=== PATIENT | male | born 1945 | race Caucasian/White ===

== ENCOUNTER → 2018-04-12 | Outpatient (CLI) | payer MEDICARE, OTHER ==
[~2018-04-12] MED LIST: ABILIFY5 MG PO; AMBIEN 10MG10 MG PO; BIOTIN1000 MCG PO; CARAFATE 1GM1 G PO; CEFTIN500 MG PO; CELLCEPT 5500 MG/TAB PO; CITRUCEL FIBER; CITRUCEL PO; CITRUCEL WITH500 MG PO; CLEOCIN HCL300 MG PO; CLINDAMYCIN HC150 MG PO; DIOVAN 160MG160 MG PO; DIOVAN320 MG PO; DIOVAN40 MG PO; DOXYCYCLINE 10100 MG PO; FENTANYL 50MCG TD; FENTANYL PATCH TD; LAMICTAL150 MG PO; LAMOTRIGINE PO; LAMOTRIGINE150 MG PO; LEVOTHYROXIN0.075 MG PO; LEXAPRO 10MG10 MG PO; LEXAPRO20 MG PO; MIRTAZAPINE7.5 MG PO; NATURE'S BLE1000 MCG PO; NEXIUM 40MG40 MG PO; NORCO 325 MG-7.1 TAB PO; NORVASC PO; NUVIGIL50 MG PO; OMEGA 3 FATTY ACID PO; OMEGA 3 PO; OMEGA-31000 MG PO; OXYCODONE HCL40 MG PO; OXYCONTIN 20MG20 MG PO; OXYCONTIN20 MG PO; PREVACID 30MG30 M1 PO; PREVACID 30MG30 MG PO; PROGRAF 1MG1 MG PO; PROGRAF PO; PROVIGIL PO; REMERON 15M15 MG/TAB PO; ROXICODONE 55 MG/TAB PO; SYNTHROID0.075 MG/T PO; ULTRAM 50MG TAB50 MG PO; UROXATRAL10 M1 PO; VITAMIN D1000 IU PO; VITAMIN D2000 I1 PO; VITAMIN D32000 IU PO; WELLBUTRIN XL150 MG PO; ZOFRAN 4MG T4 MG/TAB PO
== END ==
LOC: BHSO 10:19
DX: F31.81 Bipolar II disorder (principal)
CPT/HCPCS: G0463

== ENCOUNTER → 2019-06-19 | Outpatient (CLI) | payer MEDICARE, OTHER | LOC: BHSO 08:44 | DX: F31.81 Bipolar II disorder (principal) | CPT/HCPCS: G0463 ==

== ENCOUNTER → 2022-04-15 | Outpatient (CLI) | payer MEDICARE, OTHER | LOC: ZCOL.LAB 13:57 | DX: R10.9 Unspecified abdominal pain (principal) ==

== ENCOUNTER 2022-05-09 13:00 | Outpatient (RCR) | payer MEDICARE, OTHER ==
[2009-05-08 07:47] VITALS: BP 102/74
[2022-04-28 11:26] VITALS: BP 130/83; PULSE 74; TEMP 98.3
[2022-05-04 11:38] VITALS: BP 126/78; PULSE 83; TEMP 99.1
[2022-05-06 14:14] VITALS: BP 117/68; PULSE 84; TEMP 98.2
--- NOTE | 2022-05-06 14:40 | NUR ---
PT TOLERATED IRON INFUSION WITHOUT COMPLICATION, NEXT APPT 05/09/22.
[~2022-05-09] VITALS: Ht 152.4 cm; Wt 57.3 kg
[2022-05-09 12:55] VITALS: BP 112/68; PULSE 82; TEMP 97.6
[~2022-05-09 13:00] MED LIST changes: +ANUSOL-HC SUPPO25 MG RC; +COZAAR 50MG50 MG/TAB PO; +MASON NATURAL2000 IU PO; -VITAMIN D32000 IU PO; +ZOFRAN ODT4 MG PO
== END 2022-05-09 13:20 | disposition home or self-care (01) ==
LOC: EUO 13:00
DX: N18.9 Chronic kidney disease, unspecified (principal); D63.1 Anemia in chronic kidney disease
CPT/HCPCS: J1756

== ENCOUNTER 2022-06-01 09:36 | Inpatient (IN) | payer MEDICARE, OTHER ==
[2022-06-01] VITALS (9 sets, daily range): BP systolic 116–153; BP diastolic 72–89; PULSE 61–80; TEMP 97.9–98.6
[~2022-06-01] VITALS: Ht 152.4 cm; Wt 49.8 kg
[2022-06-01] MEDS ORDERED: PROGRAF 1MG1 MG PO ×2 (10:01→16:05)
[2022-06-01] MEDS ORDERED: SYNTHROID0.088 MG/T PO (10:01)
[2022-06-01] MEDS ORDERED: PROFERRIN ES12 MG PO (10:02)
[2022-06-01] MEDS ORDERED: FOLIC ACID0.4 MG PO (10:02)
[2022-06-01] MEDS ORDERED: DOXYCYCLINE 10100 MG PO (10:03)
[2022-06-01] MEDS ORDERED: VITAMIN C500 MG PO (10:03)
[2022-06-01] MEDS ORDERED: CLINDAMYCIN PO (10:04)
--- NOTE | 2022-06-01 11:43 | NUR ---
1110 - PT arrives and ambulated 2:1 from cart to chair; monitors and warm blankets applied. PT denies nasuea and pain; no vomiting. VSS. Verbal room report obtained: active NPO status; PT verbalized understanding and is awaiting DR to speak with PT. PT oriented to room and call altman, within reach. Gait mildly unsteady. PT requested his phone from his bag to call family, RN provided. 1125 - VSS. Call altman remains within reach. PT is taking on the phone 1140 - VSS. Call altman remains within reach. PT continues to deny pain and nausea.
--- NOTE | 2022-06-01 11:48 | NUR ---
1145 - PT assisted with repositioning in chair; additional warm blanket provided. Call altman remains within reach.
--- NOTE | 2022-06-01 12:06 | NUR ---
1155 - VSS. Blood draw obtained from butterfly in L AC. Sent to lab via tech. Call altman remains within reach. PT continues to rest w/ lights off.
--- NOTE | 2022-06-01 12:45 | NUR ---
1225 - VSS. PT is resting in the chair. Call altman remains within reach.
--- NOTE | 2022-06-01 13:11 | NUR ---
1255 - PT resting w/ call altman within reach. VSS.
--- NOTE | 2022-06-01 14:04 | NUR ---
Verbal report given to Antonella BOUDREAUX
--- NOTE | 2022-06-01 14:40 | NUR ---
PT RESTING IN CHAIR WITH FEET ELEVATED. PT DENIES NEEDS AT THIS TIME. VSS. PT MAINTAINING SPO2 WELL ON RM AIR. CALL RECEIVED BY HOUSE SUP TO TRANSFER TO INPATIENT RM [phone].
--- NOTE | 2022-06-01 15:06 | NUR ---
1454- PT RESTING IN BED. CALL LIGHT IN REACH. PT DENIES NEEDS AT THIS TIME. REPORT AND CARE OF PT GIVEN TO KANIKA REYES PRIMARY NURSE.
[2022-06-01 15:55] LABS: BASO % 0.5 % (0.0-2.0); EOS # 0.1 K/mm3 (0.0-0.7); EOS % 1.9 % (0.0-4.0); GRAN # 4.2 K/mm3 (1.4-6.5); GRAN % 73.5 % (42.2-75.2); LYMPH # 0.7 K/mm3 (1.2-3.4); LYMPH % 12.5 % (20.0-51.0); MEAN CELL VOLUME 84 fl (80.0-100.0); MEAN CORPUSCULAR HGB CONC 31 g/dl (33.0-37.0); MEAN PLATELET VOLUME 10.2 fl (7.4-10.4); MONO # 0.7 K/mm3 (0.1-0.6); MONO % 11.3 % (1.7-9.3); PLATELET COUNT 263 K/mm3 (130-400); RED BLOOD COUNT 3.68 M/mm3 (4.20-5.60); REDCELL DISTRIBUTION WIDTH-CV 15.2 % (11.5-14.5)
[2022-06-01 16:03] LABS: HEMOGLOBIN 9.5 g/dl (13.5-18.0); MEAN CORPUSCULAR HEMOGLOBIN 26 pg (27-31)
[2022-06-01 16:09] LABS: INR 1.4 (0.8-3.0); PROTHROMBIN TIME 15.9 SECONDS (9.7-12.8)
[2022-06-01 16:17] LABS: CALCIUM 9.1 mg/dL (8.4-10.2); CREATININE, serum 1.27 mg/dL (0.72-1.25); MAGNESIUM 1.6 mg/dL (1.6-2.6); POTASSIUM 5.2 mmol/L (3.5-4.5)
--- NOTE | 2022-06-01 17:18 | NUR ---
PT ADMITTED TO UNIT. ADMISSION INTAKE AND ASSESSMENT COMPLETED. PT ORIENTED TO ROOM. MED REC UPDATED. WILL CONTINUE TO MONITOR.
--- NOTE | 2022-06-01 20:00 | NUR ---
Pt had IV placed into the LAC during dayshift. Pt reports that he has a fistula in the L. arm from a hx of dialysis d/t kidney transplant in 2004. I went in to begin a new IV on the opposite arm and the pt informed me that the fistula on the left arm was closed off "years ago" and that "Dr. Hopper told me that we can use this arm". Assessed fistula for bruit and thrill. No bruit heard and no thrill palpated. IV remains in LAC. No changes at this time, will continue to monitor.
[2022-06-02] VITALS (11 sets, daily range): BP systolic 130–162; BP diastolic 75–94; PULSE 66–91; TEMP 97.6–99
--- NOTE | 2022-06-02 | NUR ---
Pt alert and oriented. Resting in chair. Follows commands. Reports abdomninal pain and requested pain medication. Prn pain medication administered per orders. Pt reports relief. Pt denies nausea/vomiting/bloody stools. Abdomen soft and non-distended. Lung sounds clear but diminished. NPO maintained. Pt independent in room. Shift assessment performed. Medications administered per orders and education provided. VS stable. Pt afebrile. BP stable. Satting WNL on room air. HR NSR. No significant skin issues noted. Pt has closed off AV fistula in left arm. No bruit auscultated and no thrill palpated. Pt does not report any questions at this time, will continue to monitor.
--- NOTE | 2022-06-02 05:48 | NUR ---
No adverse events overnight. Pt alert and oriented, resting in bed. Pt denies nausea/vomiting/chest pain/SOB. Pt did not report any stools overnight. Still denies having bloody stools. Prn oxycontin administered x1 overnight for abdominal pain. Pt remains NPO. Abdomen is rounded and soft. Pt does not report any questions at this time, will continue to monitor.
--- NOTE | 2022-06-02 09:26 | NUR ---
PT RESTING IN BED. MORNING MEDICATIONS HELD DUE TO PT BEING NPO. SHIFT ASSESSMENT COMPLETED. PT DENIES ANY NEEDS AT THIS TIME. CONTINUING TO MONITOR.
--- NOTE | 2022-06-02 09:33 | NUR ---
MAX met with the patient to discuss discharge plan. The patient lives alone in [place]. He reports independence with ADLs and does not have any DME. The patient's PCP is Dr. Edie Antonio and he receives his medications from [facility]. The patient's DPOA-HC is in EMR and it designates his son, Don (ph#[phone]). Don lives in [place]. The patient plans to return home upon discharge. He informed MAX that he had some problems with one of his nurses and wanted to talk to someone about them. MAX notified floor manager, Meghan. MAX asked the PA for PT/OT to be ordered. *Discharge plan: home. Will await PT/OT evals*
--- NOTE | 2022-06-02 09:54 | NUR ---
Initial visit; Sanat thanked Medical Secretary for looking in on him and offering God's blessings.
--- NOTE | 2022-06-02 11:12 | NUR ---
PT IS REQUESTING A DIFFERENT NURSE TO TAKE OVER HIS CARE AT THIS TIME. REPORT GIVEN TO KANIKA JAFFE.
--- NOTE | 2022-06-02 11:45 | NUR ---
PT c/o pain to abdomen-rating pain 7/10 on pain scale-described as throbbing. New orders received brom JORGE Del Castillo for x1 dose IV fentanyl due to NPO status.
--- NOTE | 2022-06-02 11:50 | NUR ---
Report received, assumed care at this time. Assessment complete. VS stable. A&Ox4. Denies nausea/shortness of breath. Rating pain 8/10 on pain scale-fentanyl given per dr coronado. Consent signed for procedure today and on front of chart. IV fluids initiating. Plan of care discussed for the rest of shift-denies questions/concerns. Call light in reach. Will monitor.
--- NOTE | 2022-06-02 14:00 | NUR ---
Patient returned via bed from recovery at this time. Post EGD vitals initiated. A&Ox4. Denies pain/nausea/shortness of breath. Denies current needs. Call light in reach. Will monitor.
[2022-06-03 00:46] VITALS: BP 148/89; PULSE 78; TEMP 97.9
--- NOTE | 2022-06-03 04:11 | NUR ---
Pt alert and oriented, resting queitly, follows commands. Pt did report upper left abdominal pain this morning. Prn pain medication administered per orders with reported relief. No stools overnight. Pt denies bloody stools. Denies chest pain/SOB. IV fluids continuing. Shift assessment performed. Medications administered per orders and education provided. VS stable. Afebrile. On room air satting WNL. Pt tolerating PO diet and medications. Pt has 2100 prograf ordered for this evening. I went to administer the medication to the pt and he stated to me that it was already given to him at 1540 with his cellcept and that "the nurse forgot to scan it because there was something wrong when she got the medication out". Pt also stated that he did not get his morning dose of prograf because he was NPO for a procedure and got his dose at 1540 and "did not want to take 2 doses so close in range". I educated pt and he still refused the 2100 prograf. Pt does not report any questions at this time, will continue to monitor.
--- NOTE | 2022-06-03 06:21 | NUR ---
No adverse events overnight. Pt resting. Alert and oriented, follows commands. Prn pain medication administered x1 overnight for left upper abdominal pain. No stools overnight. Pt denies bloody stools. Adequate urine output. Pt ambulates steady. IV fluids continued overnight. VS stable. On room air. Pt does not report any questions at this time, will continue to monitor.
[2022-06-03 06:57] LABS: BASO % 0.5 % (0.0-2.0); EOS # 0.1 K/mm3 (0.0-0.7); EOS % 1.4 % (0.0-4.0); GRAN # 4.9 K/mm3 (1.4-6.5); GRAN % 78.2 % (42.2-75.2); HEMOGLOBIN 10.4 g/dl (13.5-18.0); LYMPH # 0.6 K/mm3 (1.2-3.4); LYMPH % 10.1 % (20.0-51.0); MEAN CELL VOLUME 85 fl (80.0-100.0); MEAN CORPUSCULAR HEMOGLOBIN 26 pg (27-31); MEAN CORPUSCULAR HGB CONC 31 g/dl (33.0-37.0); MEAN PLATELET VOLUME 10.5 fl (7.4-10.4); MONO # 0.6 K/mm3 (0.1-0.6); MONO % 9.3 % (1.7-9.3); PLATELET COUNT 281 K/mm3 (130-400)
[2022-06-03 07:06] LABS: HEMATOCRIT 34.1 % (42.0-52.0)
[2022-06-03 07:09] LABS: CALCIUM 8.9 mg/dL (8.4-10.2); CREATININE, serum 1.16 mg/dL (0.72-1.25); POTASSIUM 4.5 mmol/L (3.5-4.5)
[2022-06-03 07:48] VITALS: BP 121/74; PULSE 112; TEMP 97.8
--- NOTE | 2022-06-03 08:58 | NUR ---
Patient c/o nausea after eating clear liquid breakfast. Zofran given per dr order.
[2022-06-03 12:02] VITALS: BP 115/82; PULSE 94; TEMP 98.2
[2022-06-03] MEDS ORDERED: PROTONIX 40MG T40 MG PO (14:58)
[2022-06-03] MEDS ORDERED: ZOFRAN ODT4 MG PO (14:59)
[2022-06-03] MEDS ORDERED: ROXICODONE 55 MG/TAB PO (15:02)
--- NOTE | 2022-06-03 15:20 | NUR ---
Discharge instructions given both verbal and handwritten. Discussed f/u appt, home medications, s/s of infection and when to return to hospital. Verbalizes understanding. INT DCd to left AC cath intact. Ambulated off hale per request with SHERYL Quintana escorted patient.
== END 2022-06-03 16:00 | disposition home or self-care (01) | DRG 393 ==
LOC: SDCO 09:36 → MEDICAL 15:03
PROVIDERS: Internal Medicine Gastroenterology; Physician Assistant; ADMIT Internal Medicine
PROC: 0DB68ZX Excision of Stomach, Via Natural or Artificial Opening Endoscopic, Diagnostic (ICD-10-PCS; 2022-06-01)
PROC: 0DC98ZZ Extirpation of Matter from Duodenum, Via Natural or Artificial Opening Endoscopic (ICD-10-PCS; principal; 2022-06-02 12:30)
DX: T18.3XXA Foreign body in small intestine, initial encounter (principal); E43 Unspecified severe protein-calorie malnutrition; Z94.0 Kidney transplant status; Q61.3 Polycystic kidney, unspecified; I31.3 Pericardial effusion (noninflammatory); X58.XXXA Exposure to other specified factors, initial encounter; Z79.899 Other long term (current) drug therapy; D64.9 Anemia, unspecified; E87.5 Hyperkalemia; I10 Essential (primary) hypertension; E03.9 Hypothyroidism, unspecified; G89.29 Other chronic pain; M54.9 Dorsalgia, unspecified; Z96.641 Presence of right artificial hip joint; Z96.652 Presence of left artificial knee joint; Z79.891 Long term (current) use of opiate analgesic
CPT/HCPCS: C9113; G0378; J2405; J2704; J3010; J7030; J7507; J7517

== ENCOUNTER 2022-06-28 16:15 | Day surgery (SDC) | payer MEDICARE, OTHER ==
[~2022-06-28] VITALS: Ht 152.4 cm; Wt 48.2 kg
[~2022-06-28 16:15] MED LIST changes: +CLINDAMYCIN PO; +FOLIC ACID0.4 MG PO; +PROFERRIN ES12 MG PO; +PROTONIX 40MG T40 MG PO; +SYNTHROID0.088 MG/T PO; +VITAMIN C500 MG PO
--- NOTE | 2022-06-28 17:35 | NUR ---
PATIENT ADMITED INTO ROOM 344 FOR BOWL PREP. NOTIFIED FOR ORDERS.
[2022-06-28] MEDS ORDERED: MAG-OX 400400 MG/TAB PO (17:53)
--- NOTE | 2022-06-28 17:57 | NUR ---
PAGED ANESTHESIA PER ORDERS
[2022-06-28] MEDS ORDERED: QUALITY CHOICE PO (18:03)
--- NOTE | 2022-06-28 18:10 | NUR ---
PATIENT STARTING ON BOWL PREP, HE REQUESTING NAUSEA MEDS BEFORE STARTING, GIVEN BY RN.
[2022-06-28 18:20] VITALS: BP 131/86; PULSE 73; TEMP 98
[2022-06-28] MEDS ORDERED: OXYCONTIN 10MG10 MG PO (19:32)
[2022-06-28 20:16] VITALS: BP 138/92; PULSE 87; TEMP 97.5
[2022-06-29 00:03] VITALS: BP 143/85; PULSE 85; TEMP 97.7
--- NOTE | 2022-06-29 00:05 | NUR ---
PATIENT ALERT AND ORIENTED ON ROOM ENTRY. C/O MODERATE PAIN TO BACK AND ABD. CALL TO DR. HAMMOND AND ORDER FOR HOME OXYCONTIN TO BE CONTINUED. PATIENT WORKING ON BOWEL PREP, BOWELS HAVE BARELY STARTED MOVING PER PATIENT. PATIENT STATED HE WOULD LIKE NAUSEA MEDICATIONS INCASE HE GETS NAUSEATED AND HIS HOME MEDICATIONS CONTINUED. CALL PLACED TO DR. DAS AND ORDER TO RESTART CELLCEPT AND PROGRAF, AND MAKE PATIENT NPO+BOWEL PREP, AND FOR ZOFRAN.
[2022-06-29 04:06] VITALS: BP 138/82; PULSE 77; TEMP 98.2
[2022-06-29 08:09] VITALS: BP 147/78; PULSE 74; TEMP 98.1
[2022-06-29 08:15] LABS: MEAN CELL VOLUME 85 fl (80.0-100.0); MEAN CORPUSCULAR HGB CONC 30 g/dl (33.0-37.0); MEAN PLATELET VOLUME 10.7 fl (7.4-10.4); PLATELET COUNT 260 K/mm3 (130-400); RED BLOOD COUNT 3.68 M/mm3 (4.20-5.60); REDCELL DISTRIBUTION WIDTH-CV 15.1 % (11.5-14.5)
[2022-06-29 08:17] LABS: HEMATOCRIT 31.4 % (42.0-52.0); HEMOGLOBIN 9.5 g/dl (13.5-18.0); MEAN CORPUSCULAR HEMOGLOBIN 26 pg (27-31)
[2022-06-29 08:37] LABS: CALCIUM 9.3 mg/dL (8.4-10.2); CREATININE, serum 1.3 mg/dL (0.72-1.25); POTASSIUM 4.7 mmol/L (3.5-4.5)
--- NOTE | 2022-06-29 09:03 | NUR ---
SW met with the patient to discuss discharge plan. The patient lives alone in [place]. He reports independence with ADLs and does not have any DME. The patient's PCP is Dr. Edie Antonio and she receives her medications from [facility]. The patient's DPOA-HC is in EMR and it designates his brother, Don "Roxanne Potter (ph#[phone]). Cuca lives in [place]. The patient plans to return home upon discharge. He states that Cuca drove up here to be around when he discharges and will transport him home when ready. No additional needs at this time. *Discharge plan: home*
[2022-06-29 11:46] VITALS: BP 151/82; PULSE 80; TEMP 97.8
[2022-06-29 14:07] VITALS: BP 98/66; PULSE 75
--- NOTE | 2022-06-29 15:53 | NUR ---
1600 - DISCHARGE PACKET AND PATIENT EDUCATION PROVIDED. ALL QUESTIONS ANSWERED. IV REMOVED PER PROTOCOL. PATIENT SAFELY TRANSPORTED TO ED ENTRANCE VIA STAFF AND FAMILY FOR DISCHARGE.
== END 2022-06-29 16:05 | disposition home or self-care (01) ==
LOC: SDCO 16:15 → SURG 16:19 → SDCO 06-29 16:05
PROVIDERS: Internal Medicine Gastroenterology
DX: D50.9 Iron deficiency anemia, unspecified (principal); R53.0 Neoplastic (malignant) related fatigue; K59.00 Constipation, unspecified; K64.1 Second degree hemorrhoids; Z79.899 Other long term (current) drug therapy
CPT/HCPCS: OP; J2405; J2704; J7507; J7517

== ENCOUNTER 2022-08-02 11:55 | Inpatient (IN) | payer MEDICARE, OTHER ==
[~2022-08-02] VITALS: Ht 152.4 cm; Wt 57.6 kg
[~2022-08-02 11:55] MED LIST changes: +MAG-OX 400400 MG/TAB PO; +OXYCONTIN 10MG10 MG PO; +QUALITY CHOICE PO
[2022-08-02 12:45] LABS: BASO % 0.2 % (0.0-2.0); EOS % 0.1 % (0.0-4.0); GRAN # 13.4 K/mm3 (1.4-6.5); GRAN % 87.5 % (42.2-75.2); HEMATOCRIT 36.4 % (42.0-52.0); HEMOGLOBIN 11.7 g/dl (13.5-18.0); LYMPH # 0.4 K/mm3 (1.2-3.4); LYMPH % 2.7 % (20.0-51.0); MEAN CELL VOLUME 84 fl (80.0-100.0); MEAN CORPUSCULAR HEMOGLOBIN 27 pg (27-31); MEAN CORPUSCULAR HGB CONC 32 g/dl (33.0-37.0); MEAN PLATELET VOLUME 9.9 fl (7.4-10.4); MONO # 1.4 K/mm3 (0.1-0.6); PLATELET COUNT 346 K/mm3 (130-400); RED BLOOD COUNT 4.35 M/mm3 (4.20-5.60); REDCELL DISTRIBUTION WIDTH-CV 15.1 % (11.5-14.5)
[2022-08-02 12:59] LABS: ALBUMIN 3.1 gm/dL (3.4-4.8); BILIRUBIN,TOTAL 0.8 mg/dL (0.2-1.2); C-REACTIVE PROTEIN 9.11 mg/dL (0.00-0.50); CALCIUM 9.3 mg/dL (8.4-10.2); CREATININE, serum 1.29 mg/dL (0.72-1.25); POTASSIUM 4.4 mmol/L (3.5-4.5); TOTAL PROTEIN 6.3 gm/dL (6.2-8.1)
[2022-08-02 14:52] LABS: COLLECTION METHOD CLEAN CATCH
[2022-08-02 14:58] LABS: PH 5.5 (5.0-8.5); URINE APPEARANCE Hazy (CLEAR/HAZY); URINE COLOR Yellow (YELLOW); URINE GLUCOSE Negative (NEGATIVE); URINE PROTEIN(semi-quant) 1+ (NEGATIVE)
[2022-08-02 14:59] LABS: URINE BLOOD Negative (NEGATIVE); URINE KETONE TRACE (NEGATIVE); URINE NITRATE Negative (NEGATIVE)
[2022-08-02 15:01] LABS: MUCOUS Present (NOT PRESENT); SQUAMOUS EPITHELIAL 0-2 /hpf (0-10); URINE BACTERIA None Seen /hpf (NONE SEEN)
[2022-08-02 18:14] VITALS: BP 121/83; PULSE 86; TEMP 97.9
[2022-08-02] MEDS ORDERED: COZAAR 50MG50 MG/TAB PO (18:43)
[2022-08-02 19:43] VITALS: BP 126/83; PULSE 77; TEMP 97.9
--- NOTE | 2022-08-02 21:40 | NUR ---
Patient assessed around 1920. Reported that pain medication was effective at that time. Did request HS medications. Called JORGE Roberts and home medications were ordered. Patient declined Oxycodone since he had IV pain medication already. Also did not want Fentanyl patch changed, as it was changed this morning at home. Patient did take IV Zofran, and oral medications for kidney transplant. No complaints of nausea, and no vomitting. Patient is aware of plan for ERCP tomorrow. Consent signed and put on chart. IV fluids continue per orders. Mikhail put on patient's back for comfort, which he reports is very helpful to chronic back pain. Voices no further questions, needs, or concerns at this time. In bed with call light within reach.
[2022-08-02 23:24] VITALS: BP 132/86; PULSE 62; TEMP 98.7
[2022-08-03] VITALS (522 sets, daily range): BP systolic 100–169; BP diastolic 68–86; PULSE 75–133; TEMP 96.2–98; O2SAT 62–100
--- NOTE | 2022-08-03 05:35 | NUR ---
Patient given PRN Dilaudid as requested for pain during the night. Denies nausea this morning. Completed IV fluids per orders. Continues on IV Flagyl per orders. Patient voices no questions, needs, or concerns at this time. Has been NPO except for taking medications with sips of water. In bed with call light within reach.
[2022-08-03 06:26] LABS: ALBUMIN 2.5 gm/dL (3.4-4.8); BASO % 0.3 % (0.0-2.0); BILIRUBIN,DIRECT 0.3 mg/dL (0.0-0.5); BILIRUBIN,TOTAL 0.5 mg/dL (0.2-1.2); CALCIUM 8.7 mg/dL (8.4-10.2); CREATININE, serum 1.14 mg/dL (0.72-1.25); EOS % 0.4 % (0.0-4.0); GRAN # 5.7 K/mm3 (1.4-6.5); GRAN % 80.8 % (42.2-75.2); HEMOGLOBIN 10.1 g/dl (13.5-18.0); LYMPH # 0.6 K/mm3 (1.2-3.4); LYMPH % 7.9 % (20.0-51.0); MEAN CELL VOLUME 85 fl (80.0-100.0); MEAN CORPUSCULAR HEMOGLOBIN 26 pg (27-31); MEAN CORPUSCULAR HGB CONC 31 g/dl (33.0-37.0); MEAN PLATELET VOLUME 10.6 fl (7.4-10.4); MONO # 0.7 K/mm3 (0.1-0.6); MONO % 10.3 % (1.7-9.3); POTASSIUM 5.2 mmol/L (3.5-4.5); RED BLOOD COUNT 3.82 M/mm3 (4.20-5.60); REDCELL DISTRIBUTION WIDTH-CV 15.2 % (11.5-14.5); TOTAL PROTEIN 5.2 gm/dL (6.2-8.1)
[2022-08-03 06:31] LABS: HEMATOCRIT 32.3 % (42.0-52.0)
[2022-08-03 06:33] LABS: PLATELET COUNT 231 K/mm3 (130-400)
--- NOTE | 2022-08-03 06:56 | NUR ---
Report given to day shift nurse. Endoscopy called and given report on patient as well. Asked if they wanted pre-op fluids running, and they requested NS. Hung as requested. Endoscopy reports they will be up shortly to leaf size picker patient. Updated day shift nurse.
--- NOTE | 2022-08-03 07:15 | NUR ---
SEEN PATIENT WHEELED VIA STRETCHER TO ENDO. UNABLE TO PERFORM AM ASSESSMENT
--- NOTE | 2022-08-03 11:05 | NUR ---
REPORT CALLED TO ICU NURSE MED. PHONE NUMBER FOR CALL BACK GIVEN. PCT TOOK PATIENTS BELONGINGS TO ICU ROOM
--- NOTE | 2022-08-03 16:21 | NUR ---
PICC LINE ORDERED BY DR. KENNEDY. THIS NURSE CALLED DR. GLOVER TO VERIFY IF THAT WAS OKAY WITH HIM. DR. GLOVER STATES HE DOES NOT WANT PT TO GET PICC LINE. PICC LINE ORDER DC'D PER DR. GLOVER.
[2022-08-04] VITALS (1313 sets, daily range): BP systolic 140–166; BP diastolic 100–111; PULSE 104–134; TEMP 97.1–98.2; O2SAT 67–100
[2022-08-04 06:10] LABS: HEMATOCRIT 42.7 % (42.0-52.0); MEAN CELL VOLUME 82 fl (80.0-100.0); MEAN CORPUSCULAR HGB CONC 32 g/dl (33.0-37.0); MEAN PLATELET VOLUME 10.4 fl (7.4-10.4); RED BLOOD COUNT 5.21 M/mm3 (4.20-5.60); REDCELL DISTRIBUTION WIDTH-CV 15.6 % (11.5-14.5)
[2022-08-04 06:29] LABS: ALBUMIN 2.5 gm/dL (3.4-4.8); CALCIUM 8.7 mg/dL (8.4-10.2); CREATININE, serum 1.53 mg/dL (0.72-1.25); MAGNESIUM 1.4 mg/dL (1.6-2.6); PHOSPHOROUS 4.3 mg/dL (2.3-4.7); POTASSIUM 5.6 mmol/L (3.5-4.5)
[2022-08-04 06:30] LABS: MEAN CORPUSCULAR HEMOGLOBIN 26 pg (27-31)
[2022-08-04 06:35] LABS: HEMOGLOBIN 13.6 g/dl (13.5-18.0); PLATELET COUNT 458 K/mm3 (130-400)
[2022-08-04 06:50] LABS: BAND 6 % (0-10); LYMPHOCYTE 4 % (20.0-51.0); NEUTROPHILS 89 % (42.0-75.2)
[2022-08-04 06:51] LABS: HYPOCHROMIA 1+; PLATELET ESTIMATE INCREASED (NORMAL)
--- NOTE | 2022-08-04 20:00 | NUR ---
PT ASSESSMENT COMPLETED AT THIS TIME. PT IS ALERT AND ORIENTED. PT STATES PAIN IS 7/10. PTS LINES ASSESSED. LR IS RUNNING AT 75ML/HR. PTS VSS. PT IS HYPERTENSIVE, DOCTORS ARE AWARE. PT IS CALL LIGHT COMPLIANT AND CALL LIGHT IS WITHIN REACH.
[2022-08-05] VITALS (1023 sets, daily range): BP systolic 125–160; BP diastolic 99–134; PULSE 102–135; TEMP 96.7–98.1; O2SAT 80–100
[2022-08-05 08:49] LABS: HEMATOCRIT 39.6 % (42.0-52.0); HEMOGLOBIN 12.7 g/dl (13.5-18.0); MEAN CELL VOLUME 83 fl (80.0-100.0); MEAN CORPUSCULAR HEMOGLOBIN 27 pg (27-31); MEAN CORPUSCULAR HGB CONC 32 g/dl (33.0-37.0); MEAN PLATELET VOLUME 9.9 fl (7.4-10.4); PLATELET COUNT 446 K/mm3 (130-400); REDCELL DISTRIBUTION WIDTH-CV 15.8 % (11.5-14.5)
[2022-08-05 09:00] LABS: ALBUMIN 2.5 gm/dL (3.4-4.8); CALCIUM 9.1 mg/dL (8.4-10.2); CREATININE, serum 1.44 mg/dL (0.72-1.25); MAGNESIUM 2.5 mg/dL (1.6-2.6); PHOSPHOROUS 3.5 mg/dL (2.3-4.7); POTASSIUM 4.3 mmol/L (3.5-4.5)
[2022-08-05 09:18] LABS: BAND 2 % (0-10); EOSINOPHIL 1 % (0-4); LYMPHOCYTE 3 % (20.0-51.0); NEUTROPHILS 89 % (42.0-75.2)
[2022-08-05 09:19] LABS: BURR CELLS 2+; OVALOCYTES 1+; PLATELET ESTIMATE INCREASED (NORMAL)
[2022-08-05 09:20] LABS: TSH w REFLEX 3.054 uIU/mL (0.350-4.940)
--- NOTE | 2022-08-05 11:20 | NUR ---
PT CALLED THIS NURSE INTO ROOM. STATES HE WOULD LIKE TO D/C ALL TREATMENTS AND MOVE TOWARDS COMFORT CARE AND DONATE HIS BODY TO SCIENCE. DR. SHERMAN NOTIFIED OF PT'S WISHES. PALLIATIVE CARE CONSULT ORDERED. VERO MADE AWARE OF CONSULT AND WILL BE DOWN SHORTLY TO SPEAK WITH PT.
--- NOTE | 2022-08-05 13:10 | NUR ---
Met with patient at bedside. He states he is in a lot of pain and nothing seems to be helping. He also states he has quite a bit of nausea and can't even drink water. He feels he has not made any progress since surgery and would like to stop treatment and go comfort care. Discussed comfort care and hospice options and what things may look like for him. His biggest concern is lingering in a lot of pain but understands we cannot precipitate his . After our conversation he stated that he does want to move forward with comfort care and would like hospice services through [facility]. He refused to have me call his family, stating he will do that. Notified primary RN, hospitalist, and SW. Hospitalist plans to talk with the patient before changing any orders.
--- NOTE | 2022-08-05 13:42 | NUR ---
clinical information sent via secure email to [facility]/Theo
--- NOTE | 2022-08-05 14:21 | NUR ---
Had request from primary nurse to call patient's son. Patient had just called son, Rusty, to inform him of his decision to move to comfort care and ask that Rusty watch over finances as there will be an [id number] expense for services. Rusty had questions about what all that meant. I clarified the patient's wishes and what the costs may be. I explained to Rusty that [facility] will reach out and discuss how their payment scale works and that if TAMI would like, they can also call Rusty to discuss things. Rusty was very appreciative for my call and understands his father's wishes to handle things first himself and make his own decisions.
--- NOTE | 2022-08-05 18:10 | NUR ---
PATIENT BROUHGT UP TO UNIT BY THIS RN AND LASER/ELECTRO OPTICS TECHNICIAN. PATIENT REPOSITIONED TO HIS LEFT SIDE. ZAMORANO PATENT AND DRAINING. MEPILEX TO R HIP (REDNESS). GJ DRAIN INTACT, PEBBLES DRAIN INTACT. DRESSING TO ABD CLEAN, DRY AND INTACT. EPIDURAL PATENT AND INFUSING. NICOTINE PATCH TO L UPPER BACK. RFA IV PATENT. PATIENT HAS HIS BELONGINGS. PATIENT IS RESTING IN BED, CALL LIGHT AND EPIDURAL BOLUS REMOTE/BUTTON WITHIN REACH. NIGHT RN AWARE.
--- NOTE | 2022-08-05 20:30 | NUR ---
Pt lying on his left side. A&O x4. Shift assessment completed. BIOMEDICAL EQUIPMENT TECHNICIAN pump in place for comfort care. Follow up with education on how to use it. PRN Pain medications approved to administer along with BIOMEDICAL EQUIPMENT TECHNICIAN. Abdominal dressing CDI. PEBBLES drain on right side with serosanguinous discharge. GJ/J tube on left side, clamped. Right hip with mepilex in place. Right FA INT CDI. Old Left UA fistula. Folley catheter in place. Pt denies any disconfort or pain at this moment. Call light within reach.
--- NOTE | 2022-08-06 06:25 | NUR ---
Patient given PRN Dilaudid twice this shift as requested for pain. Anesthesia came to see patient at beginning of shift, and stated that it was ok to give IV pain medications as ordered on chart. When Epidural anesthesia is complete, epidural will be discontinued.
--- NOTE | 2022-08-06 10:14 | NUR ---
CHANO PAGED CALL BACK RECVIEVED. INFORMED THEM PATIENTS EPIDUIRAL PUMP SAYS ZERO LEFT. THEY STATED TO STOP IT, THEY WILL BE UP TO PULL WHEN ABLE TO. PATIENT MADE AWARE EPIDURAL NO LONGER INFUSING AND TO CALL IF PAIN MEDICINE NEEDED.
--- NOTE | 2022-08-06 13:42 | NUR ---
Chemist Inorganic rounds: Patient politely declined bus washer visit.
--- NOTE | 2022-08-06 14:30 | NUR ---
PATIENT REPOSITIONED. PATIENT NOW COMFORTABLY RESTING ON HIS R SIDE. PEBBLES DRAIN EMPTIED. ABD DRESSING INTACT. PAIN MED GIVEN PER PATIENT REQUEST.
--- NOTE | 2022-08-06 16:32 | NUR ---
MEPILEX APPLIED TO R BUTTOCK PER PATION REQUEST. ASSITED PATIENT TO REPOSITION, PATIENT NOW SUPINE RESTING COMFORTABLY. HE VOICES NO NEEDS.
--- NOTE | 2022-08-06 20:00 | NUR ---
Pt lying down on his back. A&O x4. Daughter leaving his room. Shift assessment completed. Right FA INT discontinued. LFA INT in place CDI. Pt requesting pain medication. PEBBLES drain collection of 70ml serosanguineous discharge. ABD dressing CDI. GJ/J tube in place, clamped. No other needs or concerns at this moment. Call light within reach. Will continue monitoring.
--- NOTE | 2022-08-07 10:45 | NUR ---
PEBBLES DRAIN REMOVED. STERILE GAUZE AND TAPE APPLIED TO THE AREA. ABD DRESSING CHANGED. INCISION LOOKS CLEAN DRY AND INTACT.
--- NOTE | 2022-08-07 18:19 | NUR ---
PATIENT RESTING COMFORTABLY IN BED. NO NEEDS OR COMPLAINTS AT THIS TIME.
--- NOTE | 2022-08-07 19:20 | NUR ---
PATIENT LAYING IN BED WITH EYES CLOSED AND DOES NOT AROUSE TO NURSE KNOCK. PATIENT SHOWS NO SIGNS OF DISCOMFORT OR DISTRESS. PATIENT DOES HAVE CALL LIGHT IN HAND.
--- NOTE | 2022-08-08 06:21 | NUR ---
PATIENT HAD UNEVENTFUL NIGHT AND REQUESTED NO PAIN MEDS ALL NIGHT UNTIL 0542. THIS NURSE PROVIDED EDUCATION ON ROXANOL WHEN HE REQUESTED PAIN MEDICATION AT 0542. PATIENT AGREED TO TAKE BY MOUTH AND HAD NO ISSUES TAKING. PATIENT IS NOW SITTING IN RECLINER WITH CALL LIGHT IN HAND. PATIENT DENIES PAIN, NEEDS OR CONCERNS AT THIS TIME.
--- NOTE | 2022-08-08 07:00 | NUR ---
up in chair, bedside shift report received from KANIKA Pierre
--- NOTE | 2022-08-08 08:42 | NUR ---
Dr Rascon and care team in to see patient
--- NOTE | 2022-08-08 08:59 | NUR ---
Updated clinical securely emailed to [facility]/Radha
--- NOTE | 2022-08-08 10:30 | NUR ---
assessed abdomen and had large amount drainage from PEBBLES drain site, redressed with new ABD dressing, c/o pain and was medicated with scheduled roxicodone, will monitor, daughter at bedside
--- NOTE | 2022-08-08 12:34 | NUR ---
remains up in chair eating lunch, states pain is only 2/10 and he feels good right this minute
--- NOTE | 2022-08-08 12:45 | NUR ---
is now c/o pain 03/29 and medicated with roxanal 20mg po
--- NOTE | 2022-08-08 15:02 | NUR ---
beginning to c/o pain and medicated with scheduled roxicodone 10mg
--- NOTE | 2022-08-08 16:24 | NUR ---
Drug Inspector met with patient and confirmed with him that his DPOA-HC is his brother, Don Cerrato "Cuca". Patient is hopeful to go the the [facility] and Lesly Palliative RN initiated referral as well as sent today's updates. SW contacted Alicia at [facility] and in collaboration with patient's PCP, Dr. Antonio, it was found patient does not have a qualifying hospice diagnosis. SW and Palliative RN met with patient and his daughter, Isabel (ph#[phone]). They are very frustrated by this update as they feel patient has been trying to find answers for his pain and when none could be found, they chose hospice only to be told now it's not an option. Patient is interested in LTC but is also considering returning home if Hospitalist will discharge to home. Patient and Isabel want to review their options. SW reviewed payer source for LTC and again, patient and Isabel would like to hear from facilities would cost for LTC and if would help with anything. Isabel would like referrals to the three local SNFs and she would likely prefer [facility]. MAX faxed referrals to [facility], [facility], and [facility].
--- NOTE | 2022-08-08 17:49 | NUR ---
c/o incrased pain, medicated with dilaudid 0.5mg slow IV
--- NOTE | 2022-08-08 18:39 | NUR ---
bedside shift report given to KANIKA Hicks
--- NOTE | 2022-08-08 22:01 | NUR ---
Patient assessed around 2119. Alert and oriented x 4, and able to make needs known. Reports level 2 pain to abdomen. Declined scheduled Roxicodone at time of assessment, but stated he would call when he is ready for medication. Dressing to drain site on right abdomen changed, yellow drainage to gauze. Dressing to midline incision on abdomen CDI. GJ tube in place. Ryan with dark yellow, clear urine. Daughter at bedside, all questions answered. Mepilex to right hip CDI. Patient voices no further questions, needs, or concerns. In bed with call light within reach. Bed alarm on.
--- NOTE | 2022-08-09 05:46 | NUR ---
Patient has been resting in bed with call light within reach. Has not voiced any complaints of pain or discomfort, and has not requested any pain medication this shift. This nurse offered scheduled pain medication at bedtime, but declined, and offered scheduled pain medicaton again this morning, but patient again declined, stating he just wanted to sleep. In bed with call light within reach. Voices no questions, needs, or concerns at this time.
--- NOTE | 2022-08-09 10:15 | NUR ---
UPON ENTERING ROOM. PATIENT OPENED HIS EYES. HE REQUESTED A SIP OF WATER. AFTER DRINKING, I ASKED IF HE NEEDED ANYTHING FOR PAIN. PATIENT STATED " NO, ITS FINE RIGHT NOW." I ASKED IF THERE WAS ANYTHING HE NEEDED OR WANTED AT THIS TIME. PATIENT REPLIED, "PLEASE, JUST ELT ME SLEEP." PATIENT AGREED IF I CAME IN AND HE WAS ASLEEP TO BE LEFT ALONE. CHARGE INFORMED. SIGNED PLACED ON DOOR. PATIENTS DAUGTHER AWARE.
--- NOTE | 2022-08-09 11:00 | NUR ---
INFORMED PATIENT HIS DAUGHTER WAS HERE FOR HIS PHONE, TO TAKE IT TO BE FIXED. HE STATED HE WAS FINE WITH THAT. PHONE GIVEN TO PATIENTS DAUGHTER MELINA. PATIENT AWARE.
--- NOTE | 2022-08-09 13:57 | NUR ---
PATIENTS DAUGHTER MELINA CAME TO CHECK ON PATIENT. UPDATED HER ON PATIENT STATUS WITH PATIENTS VERBAL PERMISSION. PHONE FROM DAUGHTER RETURNED TO PATIENT. PATIENT AWARE. PATIENT RESTING IN BED WITH NO COMPLAINTS OR NEEDS AT THIS TIME.
--- NOTE | 2022-08-09 16:10 | NUR ---
Netting Weaver spoke with Lazarus at [facility] who felt that patient was hospice appropriate. MAX followed up with patient's daughter, Isabel who advised [facility] is their first preference. MAX spoke with Isabel about contacting another agency and Isabel advised she was agreeable to having a referral sent to [facility]. MAX contacted [facility] and faxed referral. MAX was contacted by ARNIE Webster who advised although patient is not service connected, patient does have a six month hospice benefit that he could use with a [place] contracted facility, like [facility]. MAX faxed clinicals to be reviewed by the [place] Palliative Physician. Eleanor also advised a zoom call would need to be arranged with MAX can facilitate. MAX updated patient's daughter Isabel on the [facility] and she is happy with this option. Isabel advised she had a conversation with [facility] and is hopeful they will hold a bed for him there. Discharge Plan: [facility] with [place] hospice contract
--- NOTE | 2022-08-09 18:05 | NUR ---
PATIENT RESTING IN BED. NO COMPLAINTS OR NEEDS AT THIS TIME. ZAMORANO PATENT ADN DRAINING TO GRAVITY. IV PATENT. CALL LIGHT AND REQESTED BELONGINGS WITHIN REACH. ABD DRESSINGS DRY AND INTACT.
--- NOTE | 2022-08-09 18:37 | NUR ---
DRESSING TO PATIENT PEBBLES DRAIN INCISION SITE CHANGED.
--- NOTE | 2022-08-09 21:31 | NUR ---
Patient assessed around 2029. Alert and oriented, and able to make needs known. fentanyl patch changed per orders. Patient given scheduled Roxicodone as requested via GJ tube. Prior to this nurse leaving, asked patient if he needed anything else, and stated he wanted pain medication. Reminded patient that he just had the Roxicodone and encouraged to call if medication was not effective, and voiced understanding. Patient voices no questions, needs, or concerns at this time. In bed with call light within reach. Bed alarm on.
--- NOTE | 2022-08-10 05:48 | NUR ---
Patient has been in bed with eyes closed, respirations even and unlabored each time this nurse has checked on him. At beginning of shift, patient has requested that he not be woken up for pain medications, and that if he is sleeping to let him sleep. In bed with eyes closed at this time. Not given scheduled pain medication at this time. Call light within reach.
--- NOTE | 2022-08-10 08:30 | NUR ---
Patient is resting in bed, alert and oriented x 4, denies pain at this time. Refused scheduled pain med in the morning. Cath montana in place, yellow output. Assessment completed, ice chips provided. No other needs at this time. Call light within [facility].
--- NOTE | 2022-08-10 12:50 | NUR ---
Drain Cleaner facilitated a video call between patient, daughter Isabel, and [facility] Adri Hope. Adri did televist with patient and stated that she would have her work completed today to make patient "vested" with the [facility]. Adri advised a [facility] contract with [facility] [employer] would be approved and her hope is that it would be ready by tomorrow. Both patient and Isabel are agreeable to placement at [facility] with [facility] contract and [facility]. MAX contacted [facility] who advised they have a bed tomorrow and will accept once they secure VA contract. MAX then spoke with Yoana at [facility]. They will accept patient and reach out to daughter, Isabel today. MAX updated hospitalist on plan. Discharge Plan: [facility] with [facility] ([facility] contract)
[2022-08-10] MEDS ORDERED: SYSTANE 0.4%-0.1 SOL OU (16:29)
[2022-08-10] MEDS ORDERED: TRANSDERM-0.5 MG/21 TD (16:29)
[2022-08-10] MEDS ORDERED: DULCOLAX S10 MG/SUPP RC (16:29)
[2022-08-10] MEDS ORDERED: ATIVAN 1MG T1 MG/TAB PO ×2 (16:30)
[2022-08-10] MEDS ORDERED: ROXANOL 20MG20 MG/ML SL ×2 (16:30)
[2022-08-10] MEDS ORDERED: ROXICODONE 55 MG/TAB PO ×2 (16:30)
[2022-08-10] MEDS ORDERED: FENTANYL 75MCG TD ×2 (16:30)
--- NOTE | 2022-08-10 18:22 | NUR ---
Patient ate some of the dinner. He has been moving on bed constantly. Continues with comfort care. Ryan in place, All needs met at this time. Report will be given to night custodian RN.
--- NOTE | 2022-08-10 18:26 | NUR ---
Patient is resting in bed, he refuses eating. He just drinks water and icechips. He took once his schedule pain medication. States he is fine. Refused change of linens. Report will be given to night RN.
--- NOTE | 2022-08-11 00:30 | NUR ---
Patient assessed around 1954. Given scheduled pain medication per order at that time as requested. Patient has requested for staff to allow him to sleep as much as possible and to not wake him up for anything, including to give scheduled mecication. Encouraged to call if he needs anything, and voiced understanding. Aware that staff will continue to check on him during the night, but not wake him as requested. Voices no further questions, needs, or concerns at this time. In bed with call light within reach.
--- NOTE | 2022-08-11 05:55 | NUR ---
Patient has not requested any PRN pain medication throughout the night. Patient awake in room this morning. Offerd to give scheduled pain medication, but declined, stating he did not need any at this time. Voices no questions, needs, or concerns at this time. In bed with call light within reach.
--- NOTE | 2022-08-11 08:30 | NUR ---
PATIENT SLEEPING, RESTING IN BED. ZAMORANO APPEARS TO BE PATENT AND DRAINING TO GRAVITY. PATIENTS BELONGINS AND CALL LIGHT WITHIN REACH. WILL CONTINUE TO MONITOR.
--- NOTE | 2022-08-11 12:41 | NUR ---
PATIENT REQUESTED PAIN MED GIVEN PER EMAR RECORD. PATIENT CURRENTLY RESTING IN BED WITH NO OTHER COMPLAINTS OR NEEDS AT THIS TIME. LFA IV AND ZAMORANO STILL PATENT. ABD INCISION OPEN TO AIR AT THIS TIME. WILL CONT TO MONITOR.
--- NOTE | 2022-08-11 16:01 | NUR ---
Card Brusher followed [facility] who advised [facility] was still pending at this time. SW contacted patient's daughter, Isabel and provided update that contract was still pending. Discharge Plan: [facility] with [facility] once VA contract is completed.
--- NOTE | 2022-08-11 18:30 | NUR ---
PATIENT RESTING IN BED, PATIETN VOICES NO NEEDS OR COMPLAINTS AT THIS TIME. BELONGINGS AND CALL LIGHT WITHIN REACH. REPORT GIVEN TO NIGHT RN
--- NOTE | 2022-08-11 23:17 | NUR ---
Patient assessed around 2144. Denies pain and discomfort, and declined scheduled pain medication. Requested to not be awakened during the night, and stated that he will call if he needs any pain medication. Voices no questions, needs, or concerns at this time. In bed with call light within reach.
--- NOTE | 2022-08-12 05:50 | NUR ---
Patient did request pain medication this morning, and given scheduled pain medication per orders. Voices no further questions, needs, or concerns at this time. In bed with call light within reach.
--- NOTE | 2022-08-12 07:26 | NUR ---
PATIENT ASLEEP IN BED. CALL IHGT AND BELONGINGS WITHIN REACH. ZAMORANO APPEARS TO BE PATENT AND DRAINING.
--- NOTE | 2022-08-12 11:54 | NUR ---
REPORT CALLED TO WILMA AT [facility]. CALL BACK NUMBER GIVEN.
--- NOTE | 2022-08-12 12:55 | NUR ---
PATIENT IV DISCONTINUED. PATIENT LEFT IN STABLE CONDITION VIA EMS. DAUGTHER PRESENT WITH PATIENT. PATIENT DAUGHTER HAS HIS CELLPHONE AND BELONGINGS.
--- NOTE | 2022-08-12 13:26 | NUR ---
Social Media Content Specialist was notified by Eleanor Social Media Content Specialist that contract is approved to start today. MAX contacted Lazarus at [facility] who advised he also spoke with Eleanor and they can accept today. MAX contacted [facility] and set up transportation for 1300. MAX placed complated EMS forms on chart. MAX met with patient and patient's daughter, Isabel. Both are in agreement to discharge to [facility] today with [facility]. MAX contacted Marshall at [facility] and notified her of discharge time. MAX faxed discharge orders to [facility] and [facility] Discharge Plan: [facility] with [facility]
[2022-08-12] MEDS ORDERED: ROXANOL 20MG20 MG/ML SL (15:40)
[2022-08-12] MEDS ORDERED: FENTANYL 75MCG TD (15:40)
[2022-08-12] MEDS ORDERED: ATIVAN 1MG T1 MG/TAB PO (15:40)
[2022-08-12] MEDS ORDERED: ROXICODONE 55 MG/TAB PO (15:40)
[2022-08-12] MEDS ORDERED: TRANSDERM-0.5 MG/21 TD (15:40)
[2022-08-12] MEDS ORDERED: SYSTANE 0.4%-0.1 SOL OU (15:40)
[2022-08-12] MEDS ORDERED: DULCOLAX S10 MG/SUPP RC (15:40)
== END 2022-08-12 12:55 | disposition hospice, home (50) | DRG 853 ==
LOC: COL.ER 11:55 → ICU 15:11 → MEDICAL 15:11 → EDBEDREQTM 17:07 → ICU 08-03 09:01 → MEDICAL 08-03 09:01 → ICU 08-03 09:02 → MEDICAL 08-05 18:34
PROVIDERS: Family Medicine; Internal Medicine; Internal Medicine Gastroenterology; Surgery; ADMIT Student in an Organized Health Care Education/Training Program
PROC: 0F798ZZ Dilation of Common Bile Duct, Via Natural or Artificial Opening Endoscopic (ICD-10-PCS; 2022-08-03)
PROC: BF141ZZ Fluoroscopy of Gallbladder, Bile Ducts and Pancreatic Ducts using Low Osmolar Contrast (ICD-10-PCS; 2022-08-03)
PROC: 0DHA0UZ Insertion of Feeding Device into Jejunum, Open Approach (ICD-10-PCS; 2022-08-03)
PROC: 3E0H76Z Introduction of Nutritional Substance into Lower GI, Via Natural or Artificial Opening (ICD-10-PCS; 2022-08-03)
PROC: 0FT40ZZ Resection of Gallbladder, Open Approach (ICD-10-PCS; principal; 2022-08-03 07:00)
PROC: 0FC98ZZ Extirpation of Matter from Common Bile Duct, Via Natural or Artificial Opening Endoscopic (ICD-10-PCS; 2022-08-03 09:00)
PROC: 0DQ90ZZ Repair Duodenum, Open Approach (ICD-10-PCS; 2022-08-03 09:00)
DX: A41.9 Sepsis, unspecified organism (principal); K26.1 Acute duodenal ulcer with perforation; Z94.0 Kidney transplant status; K80.64 Calculus of gallbladder and bile duct with chronic cholecystitis without obstruction; E87.1 Hypo-osmolality and hyponatremia; F11.20 Opioid dependence, uncomplicated; N17.9 Acute kidney failure, unspecified; Z66 Do not resuscitate; Z51.5 Encounter for palliative care; E03.9 Hypothyroidism, unspecified; G47.33 Obstructive sleep apnea (adult) (pediatric); G89.29 Other chronic pain; M54.9 Dorsalgia, unspecified; D50.9 Iron deficiency anemia, unspecified; N40.0 Benign prostatic hyperplasia without lower urinary tract symptoms; R73.9 Hyperglycemia, unspecified; G43.909 Migraine, unspecified, not intractable, without status migrainosus; M81.0 Age-related osteoporosis without current pathological fracture; I10 Essential (primary) hypertension; K21.9 Gastro-esophageal reflux disease without esophagitis; N41.1 Chronic prostatitis; F32.9 Major depressive disorder, single episode, unspecified; Z96.641 Presence of right artificial hip joint; Z96.652 Presence of left artificial knee joint; F17.210 Nicotine dependence, cigarettes, uncomplicated; E87.5 Hyperkalemia; E83.42 Hypomagnesemia; K76.89 Other specified diseases of liver; Z20.822 Contact with and (suspected) exposure to COVID-19; N28.1 Cyst of kidney, acquired; Z79.890 Hormone replacement therapy; Z88.6 Allergy status to analgesic agent; Z88.5 Allergy status to narcotic agent; Z88.8 Allergy status to other drugs, medicaments and biological substances; Z23 Encounter for immunization
CPT/HCPCS: A4314; A9270; A9284; C1769; J0696; J1170; J1644; J1956; J2185; J2370; J2405; J2704; J2795; J3010; J3475; J7050; J7120; J7507; J7517; Q9966